=== PATIENT | male | born 2000 | race Two or more races ===

== ENCOUNTER 2023-04-22 22:41 | Inpatient (IN) | payer MEDICAID ==
[~2023-04-22] VITALS: Ht 185.4 cm; Wt 83.1 kg
[2023-04-22 23:30] LABS: BASOPHILS % (AUTO) 0.4 % (0-1); EOSINOPHILS # (AUTO) 0.1 X10'3 (0-0.9); EOSINOPHILS % (AUTO) 1.3 % (0-6); HEMATOCRIT 44.9 % (42.0-52.0); LYMPHOCYTES # (AUTO) 2.4 X10'3 (1.1-4.8); LYMPHOCYTES % (AUTO) 28.1 % (21-51); MEAN CORPUSCULAR HEMOGLOBIN 30.4 PG (27.0-31.0); MEAN CORPUSCULAR HGB CONC 33.3 g/dL (33.0-36.5); MEAN CORPUSCULAR VOLUME 91.2 FL (78-98); MEAN PLATELET VOLUME 9.6 FL (7.4-10.4); MONOCYTES # (AUTO) 1.3 X10'3 (0-0.9); MONOCYTES % (AUTO) 15.7 % (2-12); NEUTROPHILS # (AUTO) 4.7 X10'3 (1.8-7.7); NEUTROPHILS % (AUTO) 54.5 % (42-75); PLATELET COUNT 186 X10'3 (140-440); RED BLOOD COUNT 4.92 X10'6 (4.70-6.10); RED CELL DISTRIBUTION WIDTH 13.3 % (11.5-14.5); WHITE BLOOD COUNT 8.6 X10'3 (4.5-11.0)
[2023-04-22 23:41] LABS: ALANINE AMINOTRANSFERASE 27 U/L (12-78); ALBUMIN 3.9 G/DL (3.4-5.0); ALBUMIN/GLOBULIN RATIO 1.2 (1.1-1.5); ALKALINE PHOSPHATASE 103 IU/L (46-116); ANION GAP 6 (8-16); ASPARTATE AMINO TRANSFERASE 16 U/L (10-37); BILIRUBIN,TOTAL 0.2 MG/DL (0.1-1.0); BLOOD UREA NITROGEN 12 MG/DL (7-18); BUN/CREATININE RATIO 10.7 (10.0-20.0); CALCIUM 9.3 MG/DL (8.5-10.1); CHLORIDE 106 MMOL/L (99-107); CREATININE 1.12 MG/DL (0.60-1.10); ETHANOL < 0.010 GM/DL (0.0-0.010); GLUCOSE 112 MG/DL (70-104); POTASSIUM 3.9 MMOL/L (3.5-5.1); SODIUM 140 MMOL/L (135-145); TOTAL CARBON DIOXIDE 28.2 MMOL/L (24-32); TOTAL PROTEIN 7.2 G/DL (6.4-8.2); eGFR 80 ML/MIN
[2023-04-22 23:50] LABS: TOTAL CELLS COUNTED 100
[2023-04-22 23:51] LABS: PLATELET ESTIMATE NORMAL
[2023-04-23] MEDS ORDERED: quetiapine 100mg tablet PO ONE (00:55)
[2023-04-23] MEDS ORDERED: acetaminophen 325mg tablet PO ONE ×2 (00:55→05:45)
[2023-04-23] MEDS ORDERED: traZODone 50mg tablet PO ONE (00:55)
[2023-04-23] MEDS ORDERED: DIVA-76 PO (01:02)
[2023-04-23] MEDS ORDERED: BENZ0.5T44 PO (01:02)
[2023-04-23] MEDS ORDERED: QUET25TA PO (01:02)
[2023-04-23] MEDS ORDERED: TRAZ-251 PO (01:02)
[2023-04-23] MEDS ORDERED: RISP1TAB13 PO (01:02)
[2023-04-23 01:14] LABS: URINE AMPHETAMINE SCREEN NEGATIVE (Neg); URINE BARBITUATE SCREEN NEGATIVE (Neg); URINE BENZODIAZEPINES SCREEN NEGATIVE (Neg); URINE CANNABINOID SCREEN NEGATIVE (Neg); URINE COCAINE SCREEN NEGATIVE (Neg); URINE METHADONE SCREEN NEGATIVE (Neg); URINE OPIATE SCREEN NEGATIVE (Neg); URINE PHENCYCLIDINE SCREEN NEGATIVE (Neg)
--- NOTE | 2023-04-23 01:18 | NUR ---
Pt brought over from main ER with mom at bedside. Pt cooperative and calm. He states he hears voices telling him to hurt himself. He denies SI at this time. Pt c/o headache 06/18, orders received from PMD. Pt resting at this time.
--- NOTE | 2023-04-23 01:21 | NUR ---
Pt is taking Invega Sustenna 156MG IM every 4 weeks. Last dose 04/12/23.
--- NOTE | 2023-04-23 01:21 | NUR ---
Edith Garces phone# [phone].
--- NOTE | 2023-04-23 03:20 | NUR ---
records sent to [facility]
--- NOTE | 2023-04-23 04:28 | NUR ---
Pt appears to be sleeping
[2023-04-23] MEDS ORDERED: benztropine 1mg tablet PO PRN (04:40)
[2023-04-23] MEDS ORDERED: LORazepam 1 MG tablet PO ONE (05:30)
--- NOTE | 2023-04-23 06:37 | NUR ---
Assumed care of pt. Pt appears to be sleeping, no acute distress noted at this time.
--- NOTE | 2023-04-23 07:34 | NUR ---
AFTER REVIEWING CHART AND PRESENTING PATIENT TO DR. SUNG PATIENT APPERS TO BE A GOOD FIT FOR [facility]. ROSA MARIA OFFICE HAD BEEN INFORMED THAT IF PATIENT IS PUT ON A HOLD AFTER EVALUATION FROM [facility] PATIENT WILL BE ACCEPTED TO [facility].
[2023-04-23] MEDS: divalproex sodium 500mg tablet.DR PO SCH ×2 (08:19→20:31)
[2023-04-23] MEDS: risperiDONE 0.5mg tablet PO SCH ×2 (08:19→20:31)
--- NOTE | 2023-04-23 08:51 | NUR ---
Pt took morning medication with no complaints. Pt ate brekafast at bedside, then tried to call his mother a few times with no answer. Pt currently resting on bed with no acute distress noticed at this time.
[2023-04-23 11:21] LABS: CLARITY,URINE CLEAR (Clear); COLOR,URINE STRAW (Yellow); GLUCOSE, URINE NEGATIVE (Neg); KETONES,URINE NEGATIVE (Neg); LEUKOCYTE ESTERASE ,URINE NEGATIVE (Neg); NITRITES, URINE NEGATIVE (Neg); OCCULT BLOOD,URINE TRACE-INTACT (Neg); PROTEIN,URINE NEGATIVE (Neg); UROBILINOGEN,URINE 0.2 E.U/dL (0.2-1.0)
[2023-04-23 11:31] LABS: UA COLLECTION TYPE CLN CATCH MIDSTREAM
[2023-04-23 11:37] LABS: BACTERIA,URINE FEW /HPF (Neg); RBC,URINE 0-2 /HPF (0-2); SQUAMOUS EPITHELIAL CELL,UR FEW /LPF (FEW)
[2023-04-23 11:38] LABS: WBC,URINE 0-4 /HPF (0-4)
[2023-04-23] MEDS ORDERED: AMPH5CAP PO (12:48)
--- NOTE | 2023-04-23 13:28 | NUR ---
Admission Note: Pt. was transferred in a wheelchair from [facility] accompanied by [employer] and [employer] at 1328. A safety check was completed and pt's belongings were inventoried by [employer]. Pt. is currently on a 5150 for DTS: It was reported that you are having auditory hallucinations telling you to hurt yourself, you feel like hurting yourself when the voices get bad. You have a history of past suicide attempts. Addendum: 04/23/23 at 1616 by Rozina Dubois RN Pt. scores as a high risk on the [place] Suicide Risk Assessment, however he is able to contract for safety while on the unit. This was endorsed to Dr. Mensah and Q 15min safety checks were ordered.
[2023-04-23] MEDS ORDERED: loperamide 2mg capsule PO PRN (13:35)
[2023-04-23] MEDS ORDERED: mag hydrox/Alum hydrox/simeth 30ml oral suspension PO PRN (13:35)
[2023-04-23] MEDS ORDERED: magnesium hydroxide 30ml (MOM) UD suspension PO PRN (13:35)
[2023-04-23] MEDS ORDERED: acetaminophen 325mg tablet PO PRN (13:40)
[2023-04-23 13:54] VITALS: BP 129/72
[2023-04-23 19:56] VITALS: BP 126/75
[2023-04-23] MEDS: QUEtiapine 25mg tablet PO SCH (20:31)
[2023-04-23] MEDS: traZODone 50mg tablet PO SCH (20:31)
--- NOTE | 2023-04-24 00:19 | NUR ---
Nursing Progress Note: Amanda Problem: Pt. is currently on a 5150 for DTS: It was reported that you are having auditory hallucinations telling you to hurt yourself, you feel like hurting yourself when the voices get bad. You have a history of past suicide attempts. Pt has a history of schizophrenia. Interventions: 1:1 assessment, therapeutic communication, active listening, medication administration/education/monitoring, ensured contract for safety, provided clear and simple instructions, prompted pt to come to meals, provided distraction, direction, reality orientation, positive reinforcement, and Q15 minute safety checks. . Response: Pt resting in bed at change of shift. Pt calm and cooperative. Pt denies any MH symptoms at this time, denies SI/AH and says he feels much better. Pt inquired as to when he will be able to discharge. Pt shared with this leader writer about where he is from and where he grew up. He went to college in [place] and has a bachelors degree in computer science. Pt participated in snacks, took all HS medications and went to bed. Plan: Patient requires interruption of current crisis with possible medication adjustments in a safe and supportive environment.
[2023-04-24] MEDS: risperiDONE 0.5mg tablet PO SCH ×2 (07:55→20:16)
[2023-04-24] MEDS: divalproex sodium 500mg tablet.DR PO SCH ×2 (07:55→20:15)
[2023-04-24 08:00] VITALS: BP 113/68
[2023-04-24] MEDS: acetaminophen 325mg tablet PO PRN (13:06)
--- NOTE | 2023-04-24 16:27 | NUR ---
Nursing Progress Note: Amanda Problem: Pt. is currently on a 5150 for DTS: It was reported that you are having auditory hallucinations telling you to hurt yourself, you feel like hurting yourself when the voices get bad. You have a history of past suicide attempts. Pt has a history of schizophrenia. Interventions: 1:1 assessment, therapeutic communication, active listening, medication administration/education/monitoring, ensured contract for safety, provided clear and simple instructions, prompted pt to come to meals, provided distraction, direction, reality orientation, positive reinforcement, and Q15 minute safety checks. . Response: Patient was found sleeping at change of shift. Patient came up to nurse asking when he could leave and when he would talk to the doctor. Patient requested prn Tylenol for headache. Patient was given medication and went to bed. Patient stayed in bed until getting up for lunch. Patient ate most of his food and then talk to doctor. Patient denies vh but stated he was having ah. Stated the voices were negative but not very loud. Patient spent a large amount of shift isolating in room and sleeping. Plan: Patient requires interruption of current crisis with possible medication adjustments in a safe and supportive environment.
[2023-04-24] MEDS ORDERED: quetiapine 100mg tablet PO PRN (18:10)
[2023-04-24] MEDS ORDERED: QUEtiapine 25mg tablet PO PRN (18:10)
[2023-04-24 19:00] VITALS: BP 140/77
[2023-04-24] MEDS: QUEtiapine 25mg tablet PO SCH (20:15)
[2023-04-24] MEDS: traZODone 50mg tablet PO SCH (20:15)
--- NOTE | 2023-04-25 00:33 | NUR ---
Nursing Progress Note: Amanda Problem: Pt. is currently on a 5150 for DTS: It was reported that you are having auditory hallucinations telling you to hurt yourself, you feel like hurting yourself when the voices get bad. You have a history of past suicide attempts. Pt has a history of schizophrenia. Interventions: 1:1 assessment, therapeutic communication, active listening, medication administration/education/monitoring, ensured contract for safety, provided clear and simple instructions, prompted pt to come to meals, provided distraction, direction, reality orientation, positive reinforcement, and Q15 minute safety checks. . Response: Patient was up in the hallway looking for this RN. Pt c/o some anxiety 04/18, PRN Seroquel given with good effect. He denies MH symptoms and says he might be able to leave in a few days. He isolated most of the evening, took HS medications and went to sleep. Plan: Patient requires interruption of current crisis with possible medication adjustments in a safe and supportive environment.
[2023-04-25] MEDS: divalproex sodium 500mg tablet.DR PO SCH ×2 (07:47→20:00)
[2023-04-25] MEDS: risperiDONE 0.5mg tablet PO SCH ×2 (07:47→20:00)
[2023-04-25 08:00] VITALS: BP 131/71
[2023-04-25] MEDS: acetaminophen 325mg tablet PO PRN (12:08)
--- NOTE | 2023-04-25 14:59 | NUR ---
Nursing Progress Note: Problem: Pt. on a 5150 for DTS: It was reported that you are having auditory hallucinations telling you to hurt yourself, you feel like hurting yourself when the voices get bad. You have a history of past suicide attempts. Interventions: 1:1 assessment with therapeutic communication and active listening, medication administration/education/monitoring, ensured contract for safety, provided clear and simple instructions, prompted pt to come to meals, provided distraction, positive reinforcement, and Q15 minute safety checks. . Response: Patient observed sleeping at change of shift. Again, first thing this morning, pt came up to nurse asking when he could leave and when he would talk to the doctor. PRN Tylenol given for DIAZ with good effect. Pt endorses A/H; denies V/H. Report derogatory voices. Pt keeps to himself, isolates to his room. Plan: Patient requires interruption of current crisis with possible medication adjustments in a safe and supportive environment.
[2023-04-25 19:00] VITALS: BP 128/77
[2023-04-25] MEDS: traZODone 50mg tablet PO SCH (20:00)
[2023-04-25] MEDS: QUEtiapine 25mg tablet PO SCH (20:00)
--- NOTE | 2023-04-26 05:06 | NUR ---
Nursing Progress Note: Amanda Problem: Pt. on a 5150 for DTS: It was reported that you are having auditory hallucinations telling you to hurt yourself, you feel like hurting yourself when the voices get bad. You have a history of past suicide attempts. Interventions: 1:1 assessment with therapeutic communication and active listening, medication administration/education/monitoring, ensured contract for safety, provided clear and simple instructions, prompted pt to come to meals, provided distraction, positive reinforcement, and Q15 minute safety checks. . Response: Received pt in hallway asking for a cup of tea along with his roommate. Pt is calm and cooperative. Pt stated that he would be leaving tomorrow. Pts 5150 hold is up in the morning. Pt is medication compliant and asked for something to help get him to sleep. Pt appears very anxious. Seroquel 100mg given. Pt attended snack then back to his room, monitor for safety q15 minutes. Plan: Patient requires interruption of current crisis with possible medication adjustments in a safe and supportive environment.
[2023-04-26] MEDS: divalproex sodium 500mg tablet.DR PO SCH (07:27)
[2023-04-26] MEDS: risperiDONE 0.5mg tablet PO SCH (07:27)
[2023-04-26 07:30] VITALS: BP 118/78
[2023-04-26 08:09] LABS: CHOL/HDL RATIO 2.9 (0.00-4.99); CHOLESTEROL 166 MG/DL (0-200); HDL CHOLESTEROL 57 MG/DL (35-60); LDL CHOLESTEROL 96 MG/DL (50-100); TRIGLYCERIDES 73 MG/DL (20-135)
[2023-04-26 08:17] LABS: HEMOGLOBIN A1C 5.2 % (4.5-6.2)
--- NOTE | 2023-04-26 09:28 | NUR ---
Expires this morning, patient to discharge home Addendum: 04/26/23 at 0929 by Gwen Bailey LVN, LVN Amended: Links added.
--- NOTE | 2023-04-26 09:40 | NUR ---
DISCHARGE NOTE: PT DISCHARGED HOME WITH PARENTS. MOTHER HERE TO MARBLE HELPER. PT LEFT WITH BELONGINGS. HE SPOKE TO DR. SUNG PRIOR TO LEAVING. HE PLANS TO CONTINUE MEDICATIONS PRESCRIBED. PT DECLINED SMOKING CESSATION RESOURCES OR REFERRALS.
--- NOTE | 2023-04-26 09:45 | NUR ---
Nursing Progress Note: Amanda Problem: Pt. on a 5150 for DTS: It was reported that you are having auditory hallucinations telling you to hurt yourself, you feel like hurting yourself when the voices get bad. You have a history of past suicide attempts. Interventions: 1:1 assessment with therapeutic communication and active listening, medication administration/education/monitoring, ensured contract for safety, provided clear and simple instructions, prompted pt to come to meals, provided distraction, positive reinforcement, and Q15 minute safety checks. . Response: Patient is very pleasant and cooperative this shift; remains medication compliant. He was awake at change of shift, he inquired when he would be leaving today. He reports this was discussed with the MD yesterday. Patient denies SI/HI and AVH. Up for breakfast and noted socializing with roommate/peers. Discharge paperwork reviewed and education provided by charge nurse Jeni GIVENS. All belongings accounted for. Patient ambulated out of facility accompanied by security and this com writer. Independent into vehicle with mother. Plan: Discharge home today with mom
== END 2023-04-26 09:40 | disposition home or self-care (01) | DRG 750 ==
LOC: ER 22:52 → ED HOLD 04-23 10:00 → ADULT MH 04-23 13:27
PROVIDERS: ADMIT Psychiatry & Neurology Psychiatry; ATTEND Psychiatry & Neurology Psychiatry
DX: F20.0 Paranoid schizophrenia (principal); E11.9 Type 2 diabetes mellitus without complications; F15.10 Other stimulant abuse, uncomplicated; F90.9 Attention-deficit hyperactivity disorder, unspecified type; I10 Essential (primary) hypertension; Z20.822 Contact with and (suspected) exposure to COVID-19; Z79.899 Other long term (current) drug therapy; Z81.8 Family history of other mental and behavioral disorders; Z82.79 Family history of other congenital malformations, deformations and chromosomal abnormalities; Z88.8 Allergy status to other drugs, medicaments and biological substances
CPT/HCPCS: 36415; 80053; 80061; 80305; 80320; 81001; 83036; 84443; 85007; 85025; 86704; 86705; 86706; 87081; 87340; 87811; 99285

== ENCOUNTER 2023-07-04 19:54 | Inpatient (IN) | payer MEDICAID ==
[~2023-07-04] VITALS: Ht 185.4 cm; Wt 90.9 kg
[~2023-07-04 19:54] MED LIST: DIVA-76 PO; RISP1TAB13 PO; TRAZ-251 PO
[2023-07-04 20:51] LABS: URINE AMPHETAMINE SCREEN POSITIVE (Neg); URINE BARBITUATE SCREEN NEGATIVE (Neg); URINE BENZODIAZEPINES SCREEN NEGATIVE (Neg); URINE CANNABINOID SCREEN NEGATIVE (Neg); URINE COCAINE SCREEN NEGATIVE (Neg); URINE METHADONE SCREEN NEGATIVE (Neg); URINE OPIATE SCREEN NEGATIVE (Neg); URINE PHENCYCLIDINE SCREEN NEGATIVE (Neg)
[2023-07-04 21:40] LABS: BASOPHILS % (AUTO) 0.3 % (0-1); EOSINOPHILS # (AUTO) 0.1 X10'3 (0-0.9); HEMATOCRIT 44.3 % (42.0-52.0); MEAN CORPUSCULAR HEMOGLOBIN 29.8 PG (27.0-31.0); MEAN CORPUSCULAR HGB CONC 33.8 g/dL (33.0-36.5); MEAN CORPUSCULAR VOLUME 88.1 FL (78-98); MEAN PLATELET VOLUME 8.4 FL (7.4-10.4); MONOCYTES # (AUTO) 0.8 X10'3 (0-0.9); MONOCYTES % (AUTO) 10.1 % (2-12); NEUTROPHILS # (AUTO) 5.1 X10'3 (1.8-7.7); NEUTROPHILS % (AUTO) 63.6 % (42-75); PLATELET COUNT 254 X10'3 (140-440); RED BLOOD COUNT 5.03 X10'6 (4.70-6.10); WHITE BLOOD COUNT 8.1 X10'3 (4.5-11.0)
[2023-07-04 21:51] LABS: ALANINE AMINOTRANSFERASE 39 U/L (12-78); ALBUMIN/GLOBULIN RATIO 1.2 (1.1-1.5); ALKALINE PHOSPHATASE 67 IU/L (46-116); ANION GAP 8 (8-16); ASPARTATE AMINO TRANSFERASE 17 U/L (10-37); BILIRUBIN,TOTAL 0.8 MG/DL (0.1-1.0); BLOOD UREA NITROGEN 12 MG/DL (7-18); BUN/CREATININE RATIO 12.4 (10.0-20.0); CALCIUM 9.4 MG/DL (8.5-10.1); CHLORIDE 103 MMOL/L (99-107); CREATININE 0.97 MG/DL (0.60-1.10); GLUCOSE 112 MG/DL (70-104); POTASSIUM 3.5 MMOL/L (3.5-5.1); SODIUM 139 MMOL/L (135-145); TOTAL CARBON DIOXIDE 27.7 MMOL/L (24-32); TOTAL PROTEIN 7.3 G/DL (6.4-8.2); eCRCL 132 ML/MIN; eGFR > 90 ML/MIN
[2023-07-04 21:58] LABS: ETHANOL < 10 MG/DL (<10)
[2023-07-05] MEDS ORDERED: AMPH20TA3 PO (00:08)
[2023-07-05] MEDS ORDERED: PALI234D IM (00:08)
[2023-07-05] MEDS ORDERED: BUPR-94 PO (00:09)
[2023-07-05] MEDS ORDERED: MELA5TAB21 PO (00:10)
[2023-07-05] MEDS ORDERED: OXYB10TA30 PO (00:14)
[2023-07-05] MEDS ORDERED: GUAN2TAB19 PO (00:16)
[2023-07-05] MEDS ORDERED: BENZ1TAB78 PO (00:17)
[2023-07-05] MEDS ORDERED: acetaminophen 325mg tablet PO ONE (00:30)
[2023-07-05] MEDS ORDERED: LORazepam 1 MG tablet PO ONE (00:30)
--- NOTE | 2023-07-05 01:06 | NUR ---
Client ambulated to Bed 20 at 23:48. BIB mother client stated "My head hurts so bad I wanted to commit suicide." "I was going to overdose or suffocate." Client denies any prior suicide attempts but states "I thought about it." He is cooperative and a good historian. Client is getting Invega injections (the last one was on 06/24/2023.) Client has a hx of Schizophrenia. He believe's the government is inserting thoughts "into his head". Denies AH/'s. Client states his mental health is "complicated". An order for 1 mg Ativan Tab PO was obtained but client fell asleep before getting it. Fell asleep w/o difficulty.
--- NOTE | 2023-07-05 02:01 | NUR ---
Resting on right side. Resp even and unlabored.
--- NOTE | 2023-07-05 02:29 | NUR ---
Packet sent to [facility] at 02:30.
--- NOTE | 2023-07-05 04:00 | NUR ---
Resting on Left side. Resp even and unlabored.
--- NOTE | 2023-07-05 04:44 | NUR ---
Client ambulated to restroom and changed into green scrubs.
--- NOTE | 2023-07-05 05:02 | NUR ---
Client awake and reporting anxiety. 1 mg Ativan Tab PO and 650 mg Tylenol Tab PO given at 04:55. Client reported 10/10 DIAZ and stated "My brain isn't making enough Dopamine. Can I get something stronger than Tylenol? Can I get an opiate?" Client has a difficult describing the sensation he is feeling in his head.
--- NOTE | 2023-07-05 05:57 | NUR ---
Asleep on right side. Respirations even and unlabored.
--- NOTE | 2023-07-05 06:42 | NUR ---
Patient sleeping on his right side. Respirations nonlabored. No distress observed. Continue with the plan of care.
[2023-07-05] MEDS ORDERED: dextroamphetamine/amphetamine 10mg tablet PO SCH (08:17)
--- NOTE | 2023-07-05 08:20 | NUR ---
Patient eating breakfast. No distress observed. Continue to monitor.
[2023-07-05] MEDS ORDERED: dextroamphetamine/amphetamine 5mg tablet PO SCH (08:27)
[2023-07-05] MEDS: buPROPion SR 150mg tablet PO SCH (08:42)
[2023-07-05] MEDS: oxybutynin 5mg tablet PO SCH (08:43)
[2023-07-05] MEDS: hydrOXYzine 25 MG tablet PO PRN ×2 (09:26→17:28)
[2023-07-05] MEDS ORDERED: DEXT20CA4 PO (09:36)
--- NOTE | 2023-07-05 09:48 | NUR ---
Patient c/o anxiety. RN spoke to Dr and spoke to patient about his Benadryl allergy which ends up being and adverse reaction and not allergy. "I have pain." RN asked what kind of pain. "Physical pain." Dr Fraser okayed the administration of Atarax for anxiety. Patient also wanted his Adderall but [facility] the long acting. Patient states he takes both the long acting and the instant release. RN advised patient that we can't give him 2 different types of Adderall because they were prescribed by 2 different doctors. Patient verbalized understanding. Patient states he is not going to have his mom bring in his Adderall. "I'll just do without it." Patient is pending eval from [facility]. Continue with patient's plan of care.
[2023-07-05] MEDS ORDERED: dextroamphetamine/amphetamine ER 5 MG CAP.ER.24H PO PRN ×2 (09:50→10:16)
--- NOTE | 2023-07-05 11:15 | NUR ---
Patient sleeping supine. Respirations equal and nonlabored. Continue with the plan of care.
--- NOTE | 2023-07-05 12:40 | NUR ---
Jonah MEJIA, evaluating patient. No distress observed. Continue to monitor.
--- NOTE | 2023-07-05 13:10 | NUR ---
[facility] advised RN that patient has no insight to his diagnosis schizophrenia. RN had advised Jonah that patient has 2 RXs written in May for Adderall by 2 different providers. One was for 20 mg ER, BID, PRN. The second was 5 mg IR BID. RN had asked patient which one he takes this morning when speaking to the Pharmacist. Patient stated he takes the 20 mg ER. RN updated the med rec and advised pharmacy. Pharmacy stated they didn't have the long acting and he would need to bring it in. RN advised patient who stated he takes both prescriptions. RN advised patient that we could not honor the second RX because it was written by a different provider. Patient stated he would call his mom to bring it in and then he changed his mind and didn't call her. Patient appears to be abusing this controlled med. Continue to monitor.
[2023-07-05] MEDS ORDERED: acetaminophen 325mg tablet PO PRN (16:40)
[2023-07-05] MEDS ORDERED: ibuprofen 200mg tablet PO PRN (16:40)
--- NOTE | 2023-07-05 18:57 | NUR ---
Pt resting in bed.
[2023-07-05] MEDS: Melatonin 3mg tablet PO SCH (21:00)
--- NOTE | 2023-07-05 21:23 | NUR ---
Pt admitted to [facility]. Gerry PCT to assist pt upstairs. All belongings with patient.
[2023-07-05] MEDS ORDERED: loperamide 2mg capsule PO PRN (21:55)
[2023-07-05] MEDS ORDERED: mag hydrox/Alum hydrox/simeth 30ml oral suspension PO PRN (21:55)
[2023-07-05] MEDS ORDERED: magnesium hydroxide 30ml (MOM) UD suspension PO PRN (21:55)
[2023-07-05 22:38] VITALS: RESP 16; O2SAT 98
[2023-07-05 23:59] VITALS: BP 112/69; PULSE 98; RESP 16; TEMP 98.6; O2SAT 97
--- NOTE | 2023-07-06 00:01 | NUR ---
RN PROGRESS NOTE: LEGAL HOLD: 5150 for DTS PROBLEM: Client was brought to ED by his mother after stating his plan to kill himself by overdosing or suffocating himself. Client has a hx of schizophrenia. INTERVENTIONS: Admit assessments. RESPONSE: Arrived on unit at 21:30 accompanied by Gerry Johnson. Client declined a shower. He reported "I have a space thats pressing on my head. It's like an egg but its' empty." Client pointed to the right side of his forehead. Flat affect and anxious mood. Client had 3 mg Melatonin for sleep. Fell asleep w/o difficulty.
[2023-07-06 07:00] VITALS: RESP 16; O2SAT 99
[2023-07-06 08:00] VITALS: BP 127/55; PULSE 90; RESP 16; TEMP 98.7; O2SAT 99
[2023-07-06] MEDS: oxybutynin 5mg tablet PO SCH (08:00)
--- NOTE | 2023-07-06 09:49 | NUR ---
Noted pt on lactose free diet w/ allergies to wheat and lactase in EMR. Under wheat allergy only says constipation likely not true allergy and lactase likely supposed to be lactose; will still include both allergens for menus to honor pt preference/diet order. Addendum: 07/06/23 at [address] Amended: Links added.
[2023-07-06] MEDS: buPROPion SR 150mg tablet PO SCH (09:55)
[2023-07-06 10:12] LABS: CHOL/HDL RATIO 3.2 (0.00-4.99); CHOLESTEROL 172 MG/DL (0-200); HDL CHOLESTEROL 54 MG/DL (35-60); LDL CHOLESTEROL 99 MG/DL (50-100); TRIGLYCERIDES 48 MG/DL (20-135)
[2023-07-06] MEDS ORDERED: mag hydrox/Alum hydrox/simeth 30ml oral suspension PO PRN (15:45)
[2023-07-06] MEDS ORDERED: magnesium hydroxide 30ml (MOM) UD suspension PO PRN (15:45)
[2023-07-06] MEDS ORDERED: HYDROcodone/acetaminophen 5mg/325mg tablet PO PRN (15:45)
[2023-07-06] MEDS ORDERED: metoclopramide 5 mg/ml inj IV PRN (15:45)
[2023-07-06] MEDS ORDERED: morphine 2 MG/ML inj. syringe IV PRN (15:45)
[2023-07-06] MEDS ORDERED: ondansetron/PF 4mg/2ml inj IV PRN (15:45)
[2023-07-06] MEDS ORDERED: acetaminophen 650mg rectal suppository RC PRN (15:45)
[2023-07-06] MEDS ORDERED: acetaminophen 325mg tablet PO PRN ×2 (15:45)
[2023-07-06] MEDS ORDERED: ondansetron 4mg rapidly disintigrating tab PO PRN (15:45)
[2023-07-06] MEDS ORDERED: bisacodyl 10mg suppository rectal RC PRN (15:45)
[2023-07-06] MEDS: hydrOXYzine 25 MG tablet PO PRN ×2 (16:37→20:00)
--- NOTE | 2023-07-06 17:54 | NUR ---
RN PROGRESS NOTE: Amanda PROBLEM: Client was brought to ED by his mother after stating his plan to kill himself by overdosing or suffocating himself. Client has a hx of schizophrenia. INTERVENTIONS: Maintained a safe and supportive environment for both staff, peers and pt., provided clear and simple instructions, attempted to orient to reality, monitored behaviors and need for intervention. RESPONSE: Received Pt in bed sleeping and in no distress at the beginning of this shift. Pt woke and was cooperative with vitals. Pt c/o feeling alone and having thoughts about suicide. Attempts made to ground Pt and assure him of the safe environment he is in. We talked about his mother and he stated my mother said she would kill herself if I killed myself. Pt skipped lunch and later had a sandwich. Pt given PRN Atarax in afternoon with good effect for anxiety. Plan: Pt. requires interruption of current crisis, medication adjustments, and a safe and supportive environment.
[2023-07-06 19:14] VITALS: RESP 16; O2SAT 98
[2023-07-06 19:18] VITALS: BP 102/60; PULSE 88; RESP 16; TEMP 98.8; O2SAT 98
[2023-07-06] MEDS ORDERED: heparin, porcine 5000 units/ml vial SQ SCH (20:00)
[2023-07-06] MEDS: Melatonin 3mg tablet PO SCH (20:00)
[2023-07-06] MEDS: docusate sod 100mg capsule PO SCH (20:00)
--- NOTE | 2023-07-06 20:16 | NUR ---
Nursing PROGRESS NOTE: LEGAL HOLD: 5150 for DTS PROBLEM: Client was brought to ED by his mother after stating his plan to kill himself by overdosing or suffocating himself. Client has a hx of schizophrenia. Interventions: One to one with the patient to assess for severity of depressive symptoms and self harm risk. Educated to medications and assessed for medication side effects. He was assessed for the presence of disordered thought processes. Dr. Freeman notified of patient suicidal thoughts and actions. Response: The patient has been laying on his bed the entire evening. During the evening assessment his speech was soft and monotone. His affect was flat and he did not move or sit up during the assessment. He stated that his anxiety was 7/10. He described his mood as "bad, depressed" He stated that he still felt suicidal and that in the morning here on the unit he tried to suffocate himself "but it didn't work" He denied A/V hallucinations. He denied feeling paranoid. Plan: The patient was placed on one to one with staff for his safety. Will continue hospitalization for stabilization and treatment.
[2023-07-06] MEDS ORDERED: temazepam 15mg capsule PO PRN (21:00)
[2023-07-07 07:00] VITALS: RESP 16; O2SAT 97
[2023-07-07] MEDS: hydrOXYzine 25 MG tablet PO PRN (07:21)
[2023-07-07 07:25] LABS: BASOPHILS % (AUTO) 0.5 % (0-1); EOSINOPHILS # (AUTO) 0.1 X10'3 (0-0.9); EOSINOPHILS % (AUTO) 1.2 % (0-6); HEMATOCRIT 43.5 % (42.0-52.0); HEMOGLOBIN 14.9 g/dl (14.0-17.9); LYMPHOCYTES # (AUTO) 1.4 X10'3 (1.1-4.8); LYMPHOCYTES % (AUTO) 27.7 % (21-51); MEAN CORPUSCULAR HEMOGLOBIN 30.1 PG (27.0-31.0); MEAN CORPUSCULAR HGB CONC 34.2 g/dL (33.0-36.5); MEAN CORPUSCULAR VOLUME 88.1 FL (78-98); MEAN PLATELET VOLUME 8.1 FL (7.4-10.4); MONOCYTES # (AUTO) 0.5 X10'3 (0-0.9); MONOCYTES % (AUTO) 10.6 % (2-12); PLATELET COUNT 236 X10'3 (140-440); RED BLOOD COUNT 4.94 X10'6 (4.70-6.10); RED CELL DISTRIBUTION WIDTH 13.1 % (11.5-14.5)
[2023-07-07] MEDS: pantoprazole 40mg Tablet.DR PO SCH (07:30)
[2023-07-07 07:44] LABS: INR 1.1 INR; PROTHROMBIN TIME 11.4 SECONDS (9.0-12.0)
[2023-07-07 07:52] LABS: ALANINE AMINOTRANSFERASE 33 U/L (12-78); ALBUMIN 3.8 G/DL (3.4-5.0); ALBUMIN/GLOBULIN RATIO 1.2 (1.1-1.5); ALKALINE PHOSPHATASE 57 IU/L (46-116); ANION GAP 7 (8-16); ASPARTATE AMINO TRANSFERASE 16 U/L (10-37); BILIRUBIN,TOTAL 0.7 MG/DL (0.1-1.0); BLOOD UREA NITROGEN 15 MG/DL (7-18); BUN/CREATININE RATIO 13.3 (10.0-20.0); CALCIUM 9.2 MG/DL (8.5-10.1); CHLORIDE 105 MMOL/L (99-107); CREATININE 1.13 MG/DL (0.60-1.10); GLUCOSE 98 MG/DL (70-104); PHOSPHORUS 3.7 MG/DL (2.3-4.5); POTASSIUM 4.2 MMOL/L (3.5-5.1); SODIUM 140 MMOL/L (135-145); TOTAL CARBON DIOXIDE 28.2 MMOL/L (24-32); TOTAL PROTEIN 6.9 G/DL (6.4-8.2); eCRCL 113 ML/MIN; eGFR 79 ML/MIN
[2023-07-07 08:00] VITALS: BP 114/73; PULSE 84; RESP 16; TEMP 97.6; O2SAT 97
[2023-07-07] MEDS: oxybutynin 5mg tablet PO SCH (08:00)
[2023-07-07] MEDS: docusate sod 100mg capsule PO SCH ×2 (08:00→20:00)
[2023-07-07 08:45] LABS: APTT 29 SECONDS (22-32)
[2023-07-07] MEDS: buPROPion SR 150mg tablet PO SCH ×2 (09:18→20:26)
--- NOTE | 2023-07-07 17:24 | NUR ---
NURSING PROGRESS NOTE: Amanda PROBLEM: Pt. was brought to ED by his mother after stating his plan to kill himself by overdosing or suffocating himself. Pt. has a hx of schizophrenia. Pt. currently on 5150 for DTS INTERVENTIONS: Maintained a safe and supportive environment for both staff, peers and pt., provided clear and simple instructions, attempted to orient to reality, monitored behaviors and need for intervention. Q15min monitor, LOS for safety, 1:1 assessment. medication administration. RESPONSE: Pt. received on LOS. He denies SI, HI, AH, VH, and refused his Oxybutynin, DSS, and protonic. He c/o 08/18 anxiety and was given PRN Atarax with fair results. Pt. presents as guarded at times, has good eye contact, and resistive to medications he feels are not needed . He spent most of his time in his room often lying in bed awake, or on the phone, which seem to upset him. Pt. ate all meals in the community room with cohorts and engaged with staff socially for brief periods. Pt. has good hygiene, fairly groomed, and wears unit scrubs. Pt. received CT scan this morning, no N.O received, and he remains on LOS for safety. Plan: Pt. requires interruption of current crisis, medication adjustments, and a safe and supportive environment. Addendum: 07/07/23 at 1757 by Damaso Reyna) RN SUPA documentation: I have reviewed and agree with all interventions, assessments performed and documented by Adilene COWART.
[2023-07-07 19:00] VITALS: BP 105/60; PULSE 78; RESP 14; TEMP 98.6; O2SAT 97
[2023-07-07] MEDS: Melatonin 3mg tablet PO SCH (20:27)
[2023-07-07] MEDS ORDERED: traZODone 50mg tablet PO SCH (21:00)
--- NOTE | 2023-07-08 02:04 | NUR ---
NURSING PROGRESS NOTE: PROBLEM: Pt. was brought to ED by his mother after stating his plan to kill himself by overdosing or suffocating himself. Pt. has a hx of schizophrenia. Pt. currently on 5150 for DTS INTERVENTIONS: Maintained a safe and supportive environment for both staff, peers and pt., provided clear and simple instructions, attempted to orient to reality, monitored behaviors and need for intervention. Q15min monitor, LOS for safety, 1:1 assessment. medication administration. RESPONSE: Patient is pleasant and cooperative with care; compliant with medication this shift. He refused Colace and reported regular BMs. Patient denied SI this shift but right before shift change reported SI with a plan to NOELLE Vann. He also denied HI, A/VH. Patient continues to self-isolate to his room. He did initiate conversation with his LOS and accepted HS snack from medical technical writer. He is observed sleeping and does not appear to be having difficulty. Plan: Pt. requires interruption of current crisis, medication adjustments, and a safe and supportive environment.
[2023-07-08 07:00] VITALS: RESP 16; O2SAT 95
[2023-07-08] MEDS: pantoprazole 40mg Tablet.DR PO SCH (07:30)
[2023-07-08 08:00] VITALS: BP 109/68; PULSE 98; RESP 16; TEMP 97.7; O2SAT 95
[2023-07-08] MEDS: oxybutynin 5mg tablet PO SCH (08:00)
[2023-07-08] MEDS: docusate sod 100mg capsule PO SCH (08:00)
[2023-07-08] MEDS ORDERED: atomoxetine 40 MG capsule PO SCH (08:00)
[2023-07-08] MEDS: hydrOXYzine 25 MG tablet PO PRN (08:01)
[2023-07-08] MEDS ORDERED: ATOM80CA PO (14:54)
--- NOTE | 2023-07-08 15:13 | NUR ---
NURSING PROGRESS NOTE: PROBLEM: Pt. was brought to ED by his mother after stating his plan to kill himself by overdosing or suffocating himself. Pt. has a hx of schizophrenia. Pt. currently on 5150 for DTS INTERVENTIONS: 1:1 assessment, establishment of rapport, therapeutic communication, active listening, encouraged pt to take his medication, medication administration/education/monitoring, ensured contract for safety, provided distraction, direction, positive reinforcement, provided LOS level of observation at the beginning of the shift then changed by provider to Q15 minute safety checks around 1215. RESPONSE: Pt was up before breakfast pacing around his room. Pt appeared anxious. Pt was given PRN Atarax 50 mg at 0801 with good effect. Pt refused his Protonix and his Colace this morning but was cooperative with all other routine meds. Pt went out on the patio with peers and the charge nurse. Pt was on a line of sight level of observation until 1215 when provider changed his observation level to Q15 minutes. Pt denied SI/HI/AH/VH. Pt appears somewhat constricted and is hesitant to take medication though did take most of them with education and encouragement. Pt appears internally preoccupied. Plan: Pt. requires interruption of current crisis, medication adjustments, and a safe and supportive environment.
--- NOTE | 2023-07-08 19:11 | NUR ---
DISCHARGE Patient provided discharge information and personal belongings. He appears stable and happy to be going home. Patient's parents down at the lobby to pick him up and he walked off the unit with February.
[2023-07-24] MEDS ORDERED: paliperidone palmitate inj 234 MG/1.5 ML SYRINGE IM SCH (08:00)
== END 2023-07-08 22:00 | disposition home or self-care (01) | DRG 751 ==
LOC: ER 19:55 → ADULT MH 07-05 21:39
PROVIDERS: ADMIT Psychiatry & Neurology Psychiatry; ATTEND Psychiatry & Neurology Psychiatry
DX: F33.2 Major depressive disorder, recurrent severe without psychotic features (principal); R45.851 Suicidal ideations; F22 Delusional disorders; Z20.822 Contact with and (suspected) exposure to COVID-19; F90.9 Attention-deficit hyperactivity disorder, unspecified type; R51.9 Headache, unspecified; R63.0 Anorexia; F20.9 Schizophrenia, unspecified; Z56.0 Unemployment, unspecified; Z81.8 Family history of other mental and behavioral disorders; Z82.79 Family history of other congenital malformations, deformations and chromosomal abnormalities; Z91.51 Personal history of suicidal behavior; Z68.26 Body mass index [BMI] 26.0-26.9, adult; Z88.8 Allergy status to other drugs, medicaments and biological substances; Z79.899 Other long term (current) drug therapy
CPT/HCPCS: 36415; 70450; 80053; 80061; 80305; 80320; 83735; 84100; 84443; 85025; 85610; 85730; 87081; 87811; 99285; Q0177

== ENCOUNTER 2024-09-22 20:13 | Inpatient (IN) | payer BC, MEDICAID ==
[~2024-09-22] VITALS: Ht 185.4 cm; Wt 109.1 kg
[~2024-09-22 20:13] MED LIST changes: +ATOM80CA PO; -DIVA-76 PO; +MELA5TAB21 PO; +OXYB10TA30 PO; +PALI234D IM; -RISP1TAB13 PO; -TRAZ-251 PO
[2024-09-22 20:45] LABS: BASOPHILS % (AUTO) 0.5 % (0-1); EOSINOPHILS # (AUTO) 0.1 X10'3 (0-0.9); EOSINOPHILS % (AUTO) 0.9 % (0-6); HEMATOCRIT 43.2 % (42.0-52.0); HEMOGLOBIN 14.6 g/dl (14.0-17.9); LYMPHOCYTES # (AUTO) 2.3 X10'3 (1.1-4.8); LYMPHOCYTES % (AUTO) 26.5 % (21-51); MEAN CORPUSCULAR HEMOGLOBIN 28.6 PG (27.0-31.0); MEAN CORPUSCULAR HGB CONC 33.7 g/dL (33.0-36.5); MEAN CORPUSCULAR VOLUME 84.9 FL (78-98); MEAN PLATELET VOLUME 8.2 FL (7.4-10.4); MONOCYTES # (AUTO) 0.7 X10'3 (0-0.9); MONOCYTES % (AUTO) 8.5 % (2-12); NEUTROPHILS # (AUTO) 5.5 X10'3 (1.8-7.7); NEUTROPHILS % (AUTO) 63.6 % (42-75); PLATELET COUNT 268 X10'3 (140-440); RED BLOOD COUNT 5.09 X10'6 (4.70-6.10); WHITE BLOOD COUNT 8.7 X10'3 (4.5-11.0)
[2024-09-22 21:13] LABS: ALBUMIN 3.8 G/DL (3.4-5.0); ANION GAP 9 (8-16); BLOOD UREA NITROGEN 14 MG/DL (7-18); CALCIUM 9.4 MG/DL (8.5-10.1); CHLORIDE 105 MMOL/L (99-107); CREATININE 1.17 MG/DL (0.60-1.10); ETHANOL < 10 MG/DL (<10); GLUCOSE 123 MG/DL (70-104); POTASSIUM 3.6 MMOL/L (3.5-5.1); SODIUM 142 MMOL/L (135-145); THYROID STIMULATING HORMONE 1.21 ulU/ml (0.34-4.50); TOTAL CARBON DIOXIDE 27.8 MMOL/L (24-32); eCRCL 108 ML/MIN; eGFR 75 ML/MIN
[2024-09-22] MEDS ORDERED: QUET25TA36 PO (21:24)
[2024-09-22] MEDS ORDERED: DEXT30CA6 PO (21:24)
[2024-09-22] MEDS ORDERED: AMPH15TA PO (21:24)
[2024-09-22] MEDS ORDERED: LUMA42CA PO (21:24)
[2024-09-22] MEDS ORDERED: RISP1TAB69 PO (21:26)
[2024-09-22] MEDS ORDERED: MELA3TAB39 PO (23:06)
[2024-09-22] MEDS ORDERED: paliperidone palmitate inj 234 MG/1.5 ML SYRINGE IM SCH (23:10)
[2024-09-23] MEDS ORDERED: RISP0.253 PO (00:29)
[2024-09-23] MEDS: LORazepam 2 mg/ml vial IM ONE (04:32)
[2024-09-23] MEDS: diphenhydrAMINE 50 mg/ml inj IM ONE (04:33)
[2024-09-23] MEDS: Lumateperone Tosylate (Caplyta) 42 MG CAPSULE PO SCH ×2 (08:00→21:10)
[2024-09-23] MEDS ORDERED: oxybutynin 5mg tablet PO SCH (08:00)
[2024-09-23] MEDS: LORazepam 1 MG tablet PO ONE (08:32)
[2024-09-23 08:47] LABS: BILIRUBIN,URINE NEGATIVE (Neg); CLARITY,URINE CLEAR (Clear); COLOR,URINE YELLOW (Yellow); GLUCOSE, URINE NEGATIVE (Neg); KETONES,URINE NEGATIVE (Neg); LEUKOCYTE ESTERASE ,URINE NEGATIVE (Neg); NITRITES, URINE NEGATIVE (Neg); OCCULT BLOOD,URINE NEGATIVE (Neg); PROTEIN,URINE NEGATIVE (Neg); UROBILINOGEN,URINE 0.2 E.U/dL (0.2-1.0)
[2024-09-23 08:49] LABS: UA COLLECTION TYPE CLN CATCH MIDSTREAM
[2024-09-23 09:11] LABS: URINE AMPHETAMINE SCREEN POSITIVE (Neg); URINE BARBITUATE SCREEN NEGATIVE (Neg); URINE BENZODIAZEPINES SCREEN NEGATIVE (Neg); URINE CANNABINOID SCREEN NEGATIVE (Neg); URINE COCAINE SCREEN NEGATIVE (Neg); URINE METHADONE SCREEN NEGATIVE (Neg); URINE OPIATE SCREEN NEGATIVE (Neg); URINE PHENCYCLIDINE SCREEN NEGATIVE (Neg)
[2024-09-23] MEDS: DEXTROAMPHETAMINE PO SCH ×2 (10:00→11:59)
[2024-09-23] MEDS: AMPHETAMINE PO SCH ×2 (10:00→11:59)
[2024-09-23 20:30] VITALS: BP 126/89; PULSE 100; RESP 20; TEMP 98; O2SAT 100
[2024-09-23] MEDS ORDERED: mag hydrox/Alum hydrox/simeth 30ml oral suspension PO PRN (20:40)
[2024-09-23] MEDS ORDERED: loperamide 2mg capsule PO PRN (20:40)
[2024-09-23] MEDS ORDERED: magnesium hydroxide 30ml (MOM) UD suspension PO PRN (20:40)
[2024-09-23] MEDS ORDERED: acetaminophen 325mg tablet PO PRN (20:40)
[2024-09-23] MEDS: Melatonin 3mg tablet PO SCH (21:00)
[2024-09-23] MEDS: risperiDONE 0.25mg tablet PO SCH (21:09)
[2024-09-23] MEDS: QUEtiapine 25mg tablet PO SCH (21:40)
[2024-09-23 22:00] VITALS: RESP 20; O2SAT 100
[2024-09-24 06:08] LABS: CHOL/HDL RATIO 3.9 (0.00-4.99); CHOLESTEROL 181 MG/DL (0-200); HDL CHOLESTEROL 46 MG/DL (35-60); LDL CHOLESTEROL 114 MG/DL (50-100); TRIGLYCERIDES 142 MG/DL (20-135)
[2024-09-24 06:23] LABS: HEMOGLOBIN A1C 5.5 % (4.5-6.2)
[2024-09-24 07:00] VITALS: RESP 14; O2SAT 100
[2024-09-24 08:00] VITALS: BP 113/74; PULSE 96; RESP 14; TEMP 97.5; O2SAT 100
[2024-09-25 07:00] VITALS: RESP 14; O2SAT 100
[2024-09-25 08:00] VITALS: BP 137/77; PULSE 103; RESP 16; TEMP 98.2; O2SAT 98
[2024-09-26 07:40] VITALS: RESP 16; O2SAT 98
[2024-09-26 08:00] VITALS: BP 116/62; PULSE 83; RESP 16; TEMP 97.9; O2SAT 98
[2024-09-26] MEDS ORDERED: hydrOXYzine 25 MG tablet PO PRN (16:15)
[2024-09-26] MEDS: hydrOXYzine 25 MG tablet PO PRN (16:25)
[2024-09-26 19:00] VITALS: RESP 16
[2024-09-26 19:56] VITALS: RESP 16
[2024-09-27 07:00] VITALS: RESP 16; O2SAT 99
[2024-09-27 08:00] VITALS: BP 137/85; PULSE 94; RESP 16; TEMP 97.3; O2SAT 99
[2024-09-27 19:00] VITALS: RESP 16
[2024-09-27 20:00] VITALS: RESP 16
[2024-09-28 07:40] VITALS: BP 135/85; PULSE 113; RESP 18; TEMP 98.3; O2SAT 100
[2024-09-28 10:00] VITALS: RESP 18; O2SAT 100
[2024-09-28 22:55] VITALS: RESP 16
[2024-09-28 23:02] VITALS: TEMP 98.2
[2024-09-29 07:48] VITALS: BP 119/76; PULSE 91; RESP 16; TEMP 97.3; O2SAT 97
[2024-09-29 08:00] VITALS: RESP 16; O2SAT 97
[2024-09-29] MEDS ORDERED: MELA3TAB39 PO (18:22)
[2024-09-29] MEDS ORDERED: RISP0.253 PO (18:22)
[2024-09-29] MEDS ORDERED: QUET25TA36 PO (18:22)
[2024-09-29] MEDS ORDERED: HYDR-3686 PO (18:22)
[2024-09-29 19:00] VITALS: RESP 16; O2SAT 99
[2024-09-29] MEDS: acetaminophen 325mg tablet PO PRN (19:17)
[2024-09-29 20:00] VITALS: BP 132/80; PULSE 95; RESP 16; TEMP 98.8; O2SAT 99
[2024-09-30 07:45] VITALS: BP 133/81; PULSE 109; RESP 18; TEMP 96.8; TEMP 98; O2SAT 96
[2024-09-30 08:29] VITALS: RESP 18; O2SAT 96
== END 2024-09-30 12:43 | disposition home or self-care (01) | DRG 885 ==
LOC: ER 20:14 → ADULT MH 09-23 15:20
PROVIDERS: ADMIT Psychiatry & Neurology Psychiatry; ATTEND Psychiatry & Neurology Psychiatry
PROC: GZHZZZZ Group Psychotherapy (ICD-10-PCS; principal; 2024-09-24)
PROC: GZ51ZZZ Individual Psychotherapy, Behavioral (ICD-10-PCS; 2024-09-24)
DX: F20.9 Schizophrenia, unspecified (principal); R45.851 Suicidal ideations; F32.A Depression, unspecified; Z20.822 Contact with and (suspected) exposure to COVID-19; F22 Delusional disorders; F90.9 Attention-deficit hyperactivity disorder, unspecified type; F15.90 Other stimulant use, unspecified, uncomplicated; Z88.8 Allergy status to other drugs, medicaments and biological substances; Z91.018 Allergy to other foods
CPT/HCPCS: 36415; 80048; 80061; 80305; 80320; 81003; 83036; 84443; 85025; 87081; 87811; 99285; Q0177

== ENCOUNTER 2024-10-21 11:50 | Inpatient (IN) | payer BC ==
[~2024-10-21] VITALS: Ht 185.4 cm; Wt 109.1 kg
[~2024-10-21 11:50] MED LIST changes: +AMPH15TA PO; -ATOM80CA PO; +DEXT30CA6 PO; +HYDR-3686 PO; +LUMA42CA PO; +MELA3TAB39 PO; -MELA5TAB21 PO; -OXYB10TA30 PO; -PALI234D IM; +QUET25TA36 PO; +RISP0.253 PO
[2024-10-21 12:48] LABS: BASOPHILS % (AUTO) 0.4 % (0-1); EOSINOPHILS % (AUTO) 0.6 % (0-6); HEMATOCRIT 45.7 % (42.0-52.0); HEMOGLOBIN 15.4 g/dl (14.0-17.9); LYMPHOCYTES # (AUTO) 1.7 X10'3 (1.1-4.8); LYMPHOCYTES % (AUTO) 20.3 % (21-51); MEAN CORPUSCULAR HGB CONC 33.8 g/dL (33.0-36.5); MEAN CORPUSCULAR VOLUME 85.8 FL (78-98); MEAN PLATELET VOLUME 8.5 FL (7.4-10.4); MONOCYTES # (AUTO) 0.9 X10'3 (0-0.9); NEUTROPHILS # (AUTO) 5.6 X10'3 (1.8-7.7); NEUTROPHILS % (AUTO) 67.7 % (42-75); PLATELET COUNT 301 X10'3 (140-440); RED BLOOD COUNT 5.33 X10'6 (4.70-6.10); RED CELL DISTRIBUTION WIDTH 14.3 % (11.5-14.5); WHITE BLOOD COUNT 8.3 X10'3 (4.5-11.0)
[2024-10-21 13:12] LABS: ANION GAP 10 (8-16); BLOOD UREA NITROGEN 12 MG/DL (7-18); BUN/CREATININE RATIO 12.6 (10.0-20.0); CALCIUM 9.4 MG/DL (8.5-10.1); CHLORIDE 106 MMOL/L (99-107); CREATININE 0.95 MG/DL (0.60-1.10); ETHANOL < 10 MG/DL (<10); GLUCOSE 92 MG/DL (70-104); POTASSIUM 3.7 MMOL/L (3.5-5.1); SODIUM 142 MMOL/L (135-145); THYROID STIMULATING HORMONE 1.22 ulU/ml (0.34-4.50); TOTAL CARBON DIOXIDE 25.9 MMOL/L (24-32); eCRCL 133 ML/MIN; eGFR > 90 ML/MIN
[2024-10-21 13:36] LABS: BILIRUBIN,URINE NEGATIVE (Neg); CLARITY,URINE CLEAR (Clear); COLOR,URINE YELLOW (Yellow); GLUCOSE, URINE NEGATIVE (Neg); KETONES,URINE NEGATIVE (Neg); LEUKOCYTE ESTERASE ,URINE NEGATIVE (Neg); NITRITES, URINE NEGATIVE (Neg); OCCULT BLOOD,URINE TRACE-INTACT (Neg); PROTEIN,URINE NEGATIVE (Neg); UROBILINOGEN,URINE 0.2 E.U/dL (0.2-1.0)
[2024-10-21 13:37] LABS: UA COLLECTION TYPE CLN CATCH MIDSTREAM
[2024-10-21 13:48] LABS: BACTERIA,URINE FEW /HPF (Neg); MUCUS STRANDS MANY /LPF (Neg); SQUAMOUS EPITHELIAL CELL,UR FEW /LPF (FEW); WBC,URINE 0-4 /HPF (0-4)
[2024-10-21 14:09] LABS: URINE AMPHETAMINE SCREEN POSITIVE (Neg); URINE BARBITUATE SCREEN NEGATIVE (Neg); URINE BENZODIAZEPINES SCREEN NEGATIVE (Neg); URINE CANNABINOID SCREEN NEGATIVE (Neg); URINE COCAINE SCREEN NEGATIVE (Neg); URINE METHADONE SCREEN NEGATIVE (Neg); URINE OPIATE SCREEN NEGATIVE (Neg); URINE PHENCYCLIDINE SCREEN NEGATIVE (Neg)
[2024-10-21] MEDS ORDERED: ESCI5TAB PO (16:25)
[2024-10-21] MEDS ORDERED: RISP-31 PO (16:25)
[2024-10-21] MEDS ORDERED: MELA1TAB28 PO (16:29)
[2024-10-21] MEDS: ibuprofen 200mg tablet PO PRN (17:26)
[2024-10-21] MEDS ORDERED: QUET25TA PO (17:35)
[2024-10-21] MEDS: risperiDONE 2mg tablet PO SCH (20:20)
[2024-10-21] MEDS: QUEtiapine 25mg tablet PO SCH (20:20)
[2024-10-21] MEDS: PYRIDOXINE PO SCH (20:45)
[2024-10-21] MEDS: LUMATEPERONE TOSYLATE PO SCH (20:45)
[2024-10-21] MEDS: MELATONIN PO SCH (20:45)
[2024-10-21 23:40] VITALS: BP 121/77; PULSE 92; RESP 12; TEMP 98.3; O2SAT 98
[2024-10-22] MEDS ORDERED: acetaminophen 325mg tablet PO PRN ×2
[2024-10-22] MEDS ORDERED: mag hydrox/Alum hydrox/simeth 30ml oral suspension PO PRN
[2024-10-22] MEDS ORDERED: magnesium hydroxide 30ml (MOM) UD suspension PO PRN
[2024-10-22 00:04] VITALS: RESP 12; O2SAT 98
[2024-10-22 07:00] VITALS: RESP 18; O2SAT 99
[2024-10-22 08:00] VITALS: BP 129/82; PULSE 92; RESP 16; TEMP 97.3; O2SAT 99
[2024-10-22] MEDS: ESCITALOPRAM 10 mg tablet 10 MG TABLET PO SCH (08:06)
[2024-10-22] MEDS: risperiDONE 0.5mg tablet PO SCH ×2 (08:06→21:10)
[2024-10-22] MEDS: dextroamphetamine/amphetamine 5mg tablet PO SCH (12:20)
[2024-10-22 19:00] VITALS: RESP 18; O2SAT 96
[2024-10-22 20:00] VITALS: BP 113/69; PULSE 90; RESP 18; TEMP 98.8; O2SAT 96
[2024-10-23 07:00] VITALS: RESP 18; O2SAT 98
[2024-10-23 08:00] VITALS: BP 124/68; PULSE 99; RESP 18; TEMP 97.7; O2SAT 98
[2024-10-23 19:00] VITALS: RESP 18; O2SAT 99
[2024-10-23 20:00] VITALS: BP 140/79; PULSE 105; RESP 18; TEMP 97.5; O2SAT 99
[2024-10-23] MEDS: risperiDONE 2mg tablet PO SCH (20:17)
[2024-10-24 07:00] VITALS: RESP 16; O2SAT 98
[2024-10-24] MEDS: ESCITALOPRAM 10 mg tablet 10 MG TABLET PO SCH (07:53)
[2024-10-24] MEDS: risperiDONE 0.5mg tablet PO SCH (07:54)
[2024-10-24 08:00] VITALS: BP 113/62; PULSE 86; RESP 16; TEMP 98.3; O2SAT 98
[2024-10-24 19:20] VITALS: RESP 18; O2SAT 99
[2024-10-24 20:00] VITALS: BP 117/75; PULSE 85; RESP 18; TEMP 98.1; O2SAT 97
[2024-10-25 07:00] VITALS: RESP 16; O2SAT 96
[2024-10-25 08:00] VITALS: BP 129/78; PULSE 102; RESP 16; TEMP 98.7; O2SAT 96
[2024-10-25 19:00] VITALS: RESP 16; O2SAT 98
[2024-10-25 21:00] VITALS: BP 117/75; PULSE 91; RESP 16; TEMP 97; O2SAT 98
[2024-10-26 06:00] VITALS: BP 114/61; PULSE 80; RESP 14; TEMP 97.3; O2SAT 97
[2024-10-26 07:00] VITALS: RESP 14; O2SAT 97
[2024-10-26 19:00] VITALS: RESP 16; O2SAT 97
[2024-10-26 19:15] VITALS: BP 152/87; PULSE 100; RESP 16; TEMP 98; O2SAT 97
[2024-10-26] MEDS: risperiDONE 0.5mg tablet PO SCH (20:01)
[2024-10-27 07:00] VITALS: RESP 16; O2SAT 94
[2024-10-27 08:00] VITALS: BP 125/76; PULSE 84; RESP 16; TEMP 97.8; O2SAT 94
[2024-10-27] MEDS: ESCITALOPRAM 10 mg tablet 10 MG TABLET PO SCH (08:01)
[2024-10-27 19:00] VITALS: RESP 18; O2SAT 96
[2024-10-27 20:00] VITALS: BP 129/82; PULSE 83; RESP 18; TEMP 96.9; O2SAT 96
[2024-10-28 07:30] VITALS: BP 124/68; PULSE 116; RESP 16; TEMP 97.9; O2SAT 99
== END 2024-10-28 10:30 | disposition home or self-care (01) | DRG 885 ==
LOC: ER 11:50 → UNDOADMIN 22:45 → ADULT MH 22:45
PROVIDERS: ADMIT Psychiatry & Neurology Psychiatry; ATTEND Psychiatry & Neurology Psychiatry
DX: F20.9 Schizophrenia, unspecified (principal); R45.851 Suicidal ideations; F90.9 Attention-deficit hyperactivity disorder, unspecified type; F32.A Depression, unspecified; E66.3 Overweight; Z20.822 Contact with and (suspected) exposure to COVID-19; F15.10 Other stimulant abuse, uncomplicated; Z76.5 Malingerer [conscious simulation]; Z68.37 Body mass index [BMI] 37.0-37.9, adult; Z81.8 Family history of other mental and behavioral disorders; Z82.79 Family history of other congenital malformations, deformations and chromosomal abnormalities; Z87.891 Personal history of nicotine dependence; Z88.8 Allergy status to other drugs, medicaments and biological substances
CPT/HCPCS: 36415; 80048; 80305; 80320; 81001; 84443; 85025; 87081; 87811; 99285; A6258; A6449